=== PATIENT | male | born 1990 | race Caucasian/White ===

== ENCOUNTER 2024-03-21 02:48 | Emergency (ER) | payer SELFPAY ==
[~2024-03-21] VITALS: Ht 175.3 cm; Wt 88.5 kg
[2024-03-21 03:01] VITALS: TEMP 98.7
[2024-03-21] MEDS ORDERED: TDAP [DIPH/PERTUSSIS/TET] 0.5 ML VIAL IM ONE (03:34)
[2024-03-21] MEDS ORDERED: LIDOCAINE /MPF 1% VIAL 5 ML VIAL ONE (03:34)
[2024-03-21 03:35] LABS: BASOPHILS % (AUTO) 0.2 % (0.0-2.0); EOSINOPHILS % (AUTO) 0.2 % (0.0-6.0); HEMATOCRIT 45 % (39-51); HEMOGLOBIN 15.4 g/dL (13.5-17.5); LYMPHOCYTES # (AUTO) 1.5 K/uL (0.8-4.8); LYMPHOCYTES % (AUTO) 13.4 % (20.0-44.0); MEAN CORPUSCULAR HEMOGLOBIN 33 PG (26.0-33.0); MEAN CORPUSCULAR HGB CONC 35 g/dl (31.0-36.0); MEAN CORPUSCULAR VOLUME 94 fL (80-96); MONOCYTES # (AUTO) 0.5 K/uL (0.1-1.30); MONOCYTES % (AUTO) 4.1 % (2.0-12.0); NEUTROPHILS # (AUTO) 9.1 K/uL (1.8-8.9); NEUTROPHILS % (AUTO) 82.1 % (43.0-81.0); PLATELET COUNT (AUTO) 191 K/uL (150-450); RED BLOOD CELL COUNT(AUTO) 4.74 MIL/uL (4.5-6.0); RED CELL DISTRIBUTION WIDTH 13.4 % (11.5-15.0); WHITE BLOOD COUNT (AUTO) 11.1 K/uL (4.3-11.0)
[2024-03-21] MEDS: TDAP [DIPH/PERTUSSIS/TET] 0.5 ML VIAL IM ONE (03:41)
[2024-03-21 03:46] LABS: CALCIUM, SERUM 8.4 mg/dL (8.5-10.1); POTASSIUM 4.1 mmol/L (3.5-5.1)
[2024-03-21 03:51] LABS: ALBUMIN 3.8 g/dL (3.4-5.0); BILIRUBIN,TOTAL 0.2 mg/dL (0.2-1.0); TOTAL PROTEIN, SERUM 7.5 g/dL (6.4-8.2)
[2024-03-21] MEDS ORDERED: CEFTRIAXONE 2 G in IV D5W 50 ML IV ONE (06:30)
[2024-03-21] MEDS ORDERED: CEFTRIAXONE 1GM BAG (ER ONLY) 100 ML IV ONE (06:35)
[2024-03-21] MEDS ORDERED: LEVETIRACETAM (500MG) 500 MG/5 ML VIAL IV ONE ×2 (06:35→06:41)
[2024-03-21] MEDS: LIDOCAINE /MPF 1% VIAL 5 ML VIAL IJ ONE (06:41)
[2024-03-21] MEDS: LEVETIRACETAM (500MG) 1,000 MG in IV NS 0.9% 90 ML IV STA (06:45)
[2024-03-21] MEDS: IV NS 0.9% 1,000 ML IV ONE (06:45)
[2024-03-21] MEDS: CEFTRIAXONE 2 G in IV D5W 100 ML IV ONE (06:48)
[2024-03-21] MEDS: VANCOMYCIN 1 GM in IV D5W 250 ML IV ONE (07:00)
[2024-03-21 09:15] VITALS: BP 158/103; O2SAT 97
== END 2024-03-21 09:30 | disposition short-term general hospital (02) ==
LOC: ER 02:51
DX: S01.112A Laceration without foreign body of left eyelid and periocular area, initial encounter (principal); W22.8XXA Striking against or struck by other objects, initial encounter; Y93.89 Activity, other specified; Y92.89 Other specified places as the place of occurrence of the external cause; Y99.8 Other external cause status
CPT/HCPCS: 12013; 36415; 70450; 70486; 72125; 73130; 80053; 80320; 85025; 90471; 90715; 96365; 96368; 99285; A6403; J0696; J1953; J3370; J3490; J7030; J7060; G0480